=== PATIENT | male | born 1950 | race Caucasian/White ===

== ENCOUNTER 2019-07-18 15:15 | Outpatient (CLI) | payer MEDICARE ==
[~2019-07-18] VITALS: Ht 175.3 cm; Wt 87.5 kg
[~2019-07-18 15:15] MED LIST: AML2.5T GT; ASP81TEC PO; ATEN100T88 PO; GLYB2.5T4 PO; LISI10TA2 PO; LOVA40TA2 PO; MTF500T PO; NIAC-4 PO; OMG1KC PO
[2019-07-18] MEDS ORDERED: LISI40TA PO (15:31)
[2019-07-18] MEDS ORDERED: ATEN100T PO (15:31)
[2019-07-18] MEDS ORDERED: LOVA40TA2 PO (15:31)
[2019-07-18] MEDS ORDERED: TIMO5DRO27 OP (15:31)
[2019-07-18] MEDS ORDERED: NIAC500T24 PO (15:31)
[2019-07-18] MEDS ORDERED: OMG1KC PO (15:31)
[2019-07-18] MEDS ORDERED: ASPI-999 PO (15:31)
[2019-07-18] MEDS ORDERED: GLIM1TAB PO (15:31)
[2019-07-18] MEDS ORDERED: AMLO5TAB9 PO (15:31)
[2019-07-18] MEDS ORDERED: METF-397 PO (15:31)
== END 2019-07-18 15:57 | disposition home or self-care (01) ==
LOC: PREOP 15:15
PROVIDERS: ATTEND Internal Medicine
DX: Z01.818 Encounter for other preprocedural examination (principal)

== ENCOUNTER 2019-07-21 08:50 | Day surgery (SDC) | payer MEDICARE ==
--- NOTE | 2019-07-13 17:10 | HISTORY AND PHYSICAL ---
DATE OF SERVICE: COLONOSCOPY HISTORY AND PHYSICAL DATE OF ADMISSION: 07/21/2019 HISTORY OF PRESENT ILLNESS: The patient is a 68-year-old white male referred for surveillance colonoscopy by Dr. Villa due to past history of colon polyps. He reports no changes in his health status. He has been feeling well, has noted no bowel habit change. Denies bright red blood per rectum or melena. PAST SURGICAL HISTORY: Significant for bilateral herniorrhaphy. PAST MEDICAL HISTORY: Significant for hypertension, diabetes and hyperlipidemia with no known reported history of cardiovascular disease. FAMILY HISTORY: He is not aware of any family history for colon cancer. Sister at age of 67 secondary to metastatic uterine cancer. Mother at the age of 86 due to dementia and father at age of 77 secondary to vascular disease with coronary artery disease as well as a stroke. SOCIAL HISTORY: He reports occasional social alcohol intake with no past smoking history. PHYSICAL EXAMINATION: GENERAL: Reveals a pleasant white male, appears to be in no acute distress. VITAL SIGNS: Weight 192.2 pounds which is down 14 pounds from his last office visit a little over 5 years ago. Blood pressure 148/90. HEENT: Unremarkable. Sclerae nonicteric. Mallampati class 2 oropharyngeal configuration. CHEST: Clear to auscultation. CARDIOVASCULAR: Revealed a regular rate and rhythm without murmur, S3 or S4. ABDOMEN: Soft, supple without mass, organomegaly or tenderness. EXTREMITIES: Reveal no cyanosis, clubbing or edema. ASSESSMENT AND PLAN: The patient was set up for screening colonoscopy due to past history of adenomatous colonic polyps. Prep instructions with [facility]-prep kit were given. Questions were answered. Electronic medical record was reviewed. I thank you for the referral of this pleasant gentleman. Job ID: [id number] DocumentID: [id number] Dictated Date: 07/13/2019 16:57:02 Clinical Researcher Date: 07/13/2019 17:09:32 Dictated By: MINNIE ROMERO MD
[~2019-07-21] VITALS: Ht 175.3 cm; Wt 87.5 kg
[2019-07-21] VITALS (12 sets, daily range): BP systolic 143–173; BP diastolic 68–86
[~2019-07-21 08:50] MED LIST changes: +AMLO5TAB9 PO; +ASPI-999 PO; +ATEN100T PO; +GLIM1TAB PO; +LISI40TA PO; +METF-397 PO; +NIAC500T24 PO; +TIMO5DRO27 OP
[2019-07-21] MEDS ORDERED: D5 LR IV SOLUTION 1,000 ML IV STA (09:09)
[2019-07-21] MEDS ORDERED: MIDAZOLAM 2 MG/2 ML (VERSED) VIAL IVP ONE (09:15)
[2019-07-21] MEDS ORDERED: fentaNYL INJECTION 100 MCG/2 ML AMP IVP ONE (09:15)
[2019-07-21] MEDS ORDERED: LIDOCAINE JELLY 2% 6 ML SYRINGE ONE (09:32)
[2019-07-21] MEDS ORDERED: MIDAZOLAM 2 MG/2 ML (VERSED) VIAL ONE (09:33)
[2019-07-21] MEDS ORDERED: fentaNYL INJECTION 100 MCG/2 ML AMP ONE (09:33)
[2019-07-21] MEDS ORDERED: D5 LR IV SOLUTION 1,000 ML IV ONE (09:55)
--- NOTE | 2019-07-21 10:11 | Pre-Op Note & Conscious Sedat ---
Pre-Operative Progress Note H&P Reviewed The H&P was reviewed, patient examined and no changes noted. Date H&P Reviewed: Jul 21, 2019 Time H&P Reviewed: 09:40 Conscious Sedation Pre-Proced ASA Score 2 For ASA 3 and 4: Consider anesthesia and medical clearance. Also, for patients with a history of failed moderate sedation consider anesthesia. Airway Lungs Heart ASA score ASA 1: a normal healthy patient ASA 2: a patient with a mild systemic disease (mid diabetes, controlled hypertension, obesity ASA 3: a patient with a severe systemic disease that limits activity (angina, COPD, prior Myocardial infarction) ASA 4: a patient with an incapacitating disease that is a constant threat to life (CHF, renal failure) ASA 5: a moribund patient not expected to survive 24 hrs. (ruptured aneurysm) ASA 6: a declared brain- patient whose organs are being harvested. For emergent operations, add the letter E after the classification Mallampati Classification Grade 2 Sedation Plan Analgesia, Amnesia, Plan communicated to team members, Discussed options with patient/fam, Discussed risks with patient/fam The patient is an appropriate candidate to undergo the planned procedure, sedation, and anesthesia. The patient immediately re-assessed prior to indication. MINNIE ROMERO MD Jul 21, 2019 10:11
[2019-07-21] MEDS ORDERED: LIDOCAINE JELLY 2% 6 ML SYRINGE TOP ONE (10:45)
--- NOTE | 2019-07-21 13:50 | OPERATIVE REPORT ---
DATE OF SERVICE: 07/21/2019 COLONOSCOPY SUMMARY INDICATION FOR THE PROCEDURE: Surveillance colonoscopy due to past history of colon polyps. The patient was placed in the left lateral decubitus position. Prior to undergoing colonoscopy, digital rectal evaluation was performed. Anal sphincter tone was normal and the perianal reflexes intact. There is no evidence for internal or external hemorrhoids. The prostate was flat and mild to moderately enlarged, anodular and nontender to digital inspection. No other abnormalities are noted on digital inspection of the anal canal or distal rectal vault. The colonoscope was then inserted into the rectum and under direct visualization advanced to cecum. The cecum was identified by identification of ileocecal valve and cecal strap. Photographic documentation was obtained. The quality of the prep was fair. There was some semi-solid stool left, would estimate that only 1 to 2% of the colon was not well visualized secondary to stool. FINDINGS: Present in the distal rectum was a diminutive hyperplastic appearing polyp. It was biopsied and ablated and submitted for histopathology with no blood loss via hot forceps. The remainder of the rectum was unremarkable. Several small sigmoid diverticulum were present without evidence for diverticulitis. No other sigmoid colonic abnormalities were appreciated. The descending colon, transverse colon, ascending colon and cecum were unremarkable. ASSESSMENT: 1. Diminutive hyperplastic polyp was removed via hot forceps from the distal rectum. No other evidence for neoplasia was identified. Considering this patient's past history of polyps, we would advocate consideration for repeat surveillance colonoscopy in 5 years provided his health remains reasonable. 2. Digital evaluation of the prostate is compatible with mild to moderate benign prostatic hyperplasia. 3. Mild diverticular disease confined to the sigmoid colon was present without evidence for diverticulitis. I thank you for the referral of this pleasant gentleman. Job ID: [id number] DocumentID: [id number] Dictated Date: 07/21/2019 10:50:35 Loom Repairer Date: 07/21/2019 13:48:32 Dictated By: MINNIE ROMERO MD [facility]
== END 2019-07-21 11:45 | disposition home or self-care (01) ==
LOC: ENDO 08:50
PROVIDERS: ATTEND Internal Medicine
DX: K62.1 Rectal polyp (principal); K57.30 Diverticulosis of large intestine without perforation or abscess without bleeding; E78.5 Hyperlipidemia, unspecified; I10 Essential (primary) hypertension; Z88.8 Allergy status to other drugs, medicaments and biological substances; Z86.79 Personal history of other diseases of the circulatory system; Z83.71 Family history of colonic polyps; Z80.49 Family history of malignant neoplasm of other genital organs; Z83.2 Family history of diseases of the blood and blood-forming organs and certain disorders involving the immune mechanism; Z82.49 Family history of ischemic heart disease and other diseases of the circulatory system; Z12.11 Encounter for screening for malignant neoplasm of colon; Z79.4 Long term (current) use of insulin
CPT/HCPCS: 82962